=== PATIENT | female | born 1995 | race Asian ===

== ENCOUNTER 2024-02-28 22:16 | Emergency (ER) | payer OTHER ==
[~2024-02-28] VITALS: Ht 160 cm; Wt 81.8 kg
[2024-02-28] MEDS ORDERED: BUPR-50 PO (22:33)
[2024-02-28] MEDS ORDERED: PARO10TA89 PO (22:33)
[2024-02-28 22:38] VITALS: BP 141/99; PULSE 81; RESP 16; TEMP 98.5
[2024-02-28] MEDS: DEXAMETHASONE SOD PHOS 4 MG/ML 5 ML VIAL IM ONE (23:16)
[2024-02-28] MEDS: KETOROLAC TROMETHAMINE 30 MG/ML VIAL IM ONE (23:17)
== END 2024-02-28 23:33 | disposition home or self-care (01) ==
LOC: EMS 22:25
DX: S39.012A Strain of muscle, fascia and tendon of lower back, initial encounter (principal); M79.18 Myalgia, other site; F41.1 Generalized anxiety disorder; Z98.890 Other specified postprocedural states; X58.XXXA Exposure to other specified factors, initial encounter; Y93.89 Activity, other specified; Y92.89 Other specified places as the place of occurrence of the external cause; Y99.8 Other external cause status
CPT/HCPCS: 99284; 96372; J1100; J1885